=== PATIENT | female | born 1985 | race Asian ===

== ENCOUNTER 2022-10-12 08:35 | Outpatient (CLI) | payer BC ==
[2022-10-12] MEDS ORDERED: Iopamidol 370 76% 100 ML VIAL ONE (14:46)
== END 2022-10-12 08:36 | disposition home or self-care (01) ==
LOC: CT 08:35
PROVIDERS: ATTEND Student in an Organized Health Care Education/Training Program
DX: R10.32 Left lower quadrant pain (principal); N83.201 Unspecified ovarian cyst, right side
CPT/HCPCS: 74178; Q9967

== ENCOUNTER 2022-11-01 08:56 | Outpatient (CLI) | payer BC | END 2022-11-01 08:57 | disposition home or self-care (01) | LOC: BICMAMMO 08:56 | PROVIDERS: ATTEND Nurse Practitioner Family | DX: N64.4 Mastodynia (principal) | CPT/HCPCS: 77066; G0279 ==